=== PATIENT | male | born 1960 | race African-American/Black ===

== ENCOUNTER 2017-12-21 22:26 | Inpatient (IN) | payer MEDICARE, MEDICAID ==
[~2017-12-21] VITALS: Ht 175.3 cm; Wt 111.1 kg
[2017-12-21] MEDS ORDERED: ALBUTEROL (0.083%) 2.5MG/3ML NEB HHN STA (22:33)
[2017-12-21] MEDS ORDERED: IPRATROPIUM BROMIDE (0.02%) 0.5MG/2.5ML NEB HHN STA (22:33)
[2017-12-21] MEDS ORDERED: ASPIRIN 81MG TABLET PO ONE (22:45)
[2017-12-21] MEDS ORDERED: NITROGLYCERIN 0.4MG TABLET SL SL PRN (22:45)
[2017-12-21] MEDS ORDERED: FUROSEMIDE 100MG/10ML VIAL IVP ONE (23:00)
[2017-12-21 23:13] LABS: HEMATOCRIT. 26.4 % (42.0-52.0); HEMOGLOBIN. 8.9 g/dL (14.0-18.0); MEAN CORPUSCULAR VOLUME 91.7 fL (80.0-94.0); MEAN PLATELET VOLUME 8.2 fl (7.4-10.4); PLATELET 331 x1000/uL (130-400); RED BLOOD CELL COUNT 2.87 mill/uL (4.7-6.1); RED CELL DISTRIBUTION WIDTH 16.7 % (11.6-14.6)
[2017-12-21 23:14] LABS: CHLORIDE 98 mEq/L (98-107)
[2017-12-21 23:16] LABS: PARTIAL THROMBOPLASTIN TIME 26.4 sec (23.4-31.0); PROTHROMBIN TIME 10.1 sec (9.1-11.1)
[2017-12-22] VITALS (34 sets, daily range): BP systolic 82–200; BP diastolic 27–157
[2017-12-22 00:15] LABS: PLATELET ESTIMATE NORMAL
[2017-12-22] MEDS ORDERED: HEPARIN 5000 UNITS/ML VIAL IV SCH (03:15)
[2017-12-22] MEDS ORDERED: HEPARIN 25,000 UNITS PREMIX 500 ML IV PRN (03:15)
[2017-12-22] MEDS ORDERED: ALBUTEROL (0.083%) 2.5MG/3ML NEB HHN STA (04:46)
[2017-12-22] MEDS ORDERED: IPRATROPIUM BROMIDE (0.02%) 0.5MG/2.5ML NEB HHN STA (04:46)
[2017-12-22] MEDS ORDERED: TAMS-11 PO (09:20)
[2017-12-22] MEDS ORDERED: CLONIDINE 0.1MG TABLET PO PRN (09:45)
[2017-12-22] MEDS ORDERED: IPRATROPIUM/ALBUTEROL 0.5-3(2.5)MG/3ML NEB HHN PRN (09:45)
[2017-12-22] MEDS ORDERED: DEXTROSE 50% WATER 50ML SYRINGE IV PRN (10:00)
[2017-12-22] MEDS ORDERED: CLOPIDOGREL 75MG TABLET PO NR ×2 (10:30→11:00)
[2017-12-22] MEDS ORDERED: ASPIRIN 325MG EC TABLET PO SCH (10:45)
[2017-12-22] MEDS: IPRATROPIUM/ALBUTEROL 0.5-3(2.5)MG/3ML NEB HHN SCH ×3 (10:47→20:01)
[2017-12-22] MEDS: BUDESONIDE 0.5MG/2ML NEB HHN SCH ×2 (10:47→20:01)
[2017-12-22 10:53] LABS: BG BASE EXCESS -4.8 mmol/L (-2.0-2.0); BG BILEVEL POS AIRWAY PRESSURE 15/5; BG CARBOXYHEMOGLOBIN 0.3 % (0.5-1.5); BG FRACTION INSPIRED OXYGEN 40; BG HCO3 ACT 20.8 mmol/L (22.0-26.0); BG METHEMOGLOBIN 0.2 % (0.0-1.5); BG OXYHEMOGLOBIN 98.5 % (94.0-97.0); BG PCO2 40.4 mmHg (35.0-45.0); BG PH 7.329 (7.350-7.450); BG PO2 235.3 mmHg (75.0-100.0); BG SAMPLE SITE RIGHT RADIAL; BG TOTAL HEMOGLOBIN 9.6 g/dL (12.0-18.0); BG VENT MODE MASK - BIPAP; BG VENT RATE 20 set
[2017-12-22] MEDS: AMLODIPINE 2.5MG TABLET PO SCH ×2 (10:56→17:00)
[2017-12-22] MEDS: LOSARTAN POTASSIUM 50 MG TABLET PO SCH ×2 (10:56→20:56)
[2017-12-22] MEDS ORDERED: ENOXAPARIN 100MG/ML SYR SUBCUT NR (11:00)
[2017-12-22] MEDS ORDERED: ASPIRIN 81MG TABLET PO SCH (11:00)
[2017-12-22] MEDS: CLOPIDOGREL 75MG TABLET PO SCH (11:25)
[2017-12-22] MEDS: BLOOD SUGAR DIAGNOSTIC STRIP TEST SCH ×3 (11:47→20:28)
[2017-12-22] MEDS: NITROGLYCERIN OINT 1GM/INCH UDPKT TD SCH ×3 (12:00→23:46)
[2017-12-22] MEDS ORDERED: METOPROLOL TARTRATE 50MG TABLET PO SCH ×3 (12:00→21:00)
[2017-12-22] MEDS: INSULIN LISPRO 100 UNITS/ML SUBCUT SCH ×3 (12:02→20:27)
[2017-12-22 12:35] LABS: TOTAL IRON BINDING CAPACITY 227 ug/dL (250-450)
[2017-12-22 12:43] LABS: FERRITIN 842 ng/mL (22-322)
[2017-12-22 12:54] LABS: VITAMIN B12 SERUM 1029 pg/mL (211-911)
[2017-12-22] MEDS ORDERED: NITROGLYCERIN OINT 1GM/INCH UDPKT TD SCH (14:00)
[2017-12-22 17:01] LABS: METHADONE URINE SCREEN NEGATIVE (NEGATIVE); OPIATES URINE SCREEN NEGATIVE (NEGATIVE); PHENCYCLIDINE URINE SCREEN NEGATIVE (NEGATIVE)
[2017-12-22 17:02] LABS: *AMPHETAMINES SCREEN URINE NEGATIVE (NEGATIVE); *BARBITURATES SCREEN URINE NEGATIVE (NEGATIVE); *BENZODIAZEPINES SCREEN URINE NEGATIVE (NEGATIVE); *COCAINE SCREEN URINE NEGATIVE (NEGATIVE); CANNABINOID URINE SCREEN NEGATIVE (NEGATIVE)
[2017-12-22 17:38] LABS: BG BASE EXCESS -0.1 mmol/L (-2.0-2.0); BG CARBOXYHEMOGLOBIN 0.3 % (0.5-1.5); BG DEOXYHEMOGLOBIN 3.8 % (0.0-5.0); BG FRACTION INSPIRED OXYGEN 28; BG HCO3 ACT 23.9 mmol/L (22.0-26.0); BG METHEMOGLOBIN 0.2 % (0.0-1.5); BG OXYGEN SATURATION 96.2 % (92.0-98.5); BG OXYHEMOGLOBIN 95.7 % (94.0-97.0); BG PCO2 36.3 mmHg (35.0-45.0); BG PH 7.436 (7.350-7.450); BG PO2 95.8 mmHg (75.0-100.0); BG SAMPLE SITE RIGHT RADIAL; BG TOTAL HEMOGLOBIN 9.4 g/dL (12.0-18.0); BG VENT MODE NASAL CANNULA
[2017-12-22] MEDS ORDERED: FUROSEMIDE 100MG/10ML VIAL IVP NR (19:30)
[2017-12-22] MEDS: NEBIVOLOL HCL 5 MG TABLET PO SCH (20:55)
[2017-12-22] MEDS ORDERED: EPOETIN ALFA 10000UNITS/ML VIAL SUBCUT SCH (21:00)
[2017-12-22] MEDS: TAMSULOSIN HCL 0.4MG SR CAPSULE PO SCH (21:42)
[2017-12-23] VITALS (34 sets, daily range): BP systolic 38–147; BP diastolic 21–101
[2017-12-23] MEDS: IPRATROPIUM/ALBUTEROL 0.5-3(2.5)MG/3ML NEB HHN SCH ×4 (00:12→12:09)
[2017-12-23] MEDS: NITROGLYCERIN OINT 1GM/INCH UDPKT TD SCH ×3 (05:48→21:58)
[2017-12-23 06:01] LABS: BASOPHILS % 0.8 % (0.0-2.0); EOSINOPHILS % 1.1 % (0.0-5.0); HEMATOCRIT. 23.9 % (42.0-52.0); LYMPHOCYTES % 24.4 % (20.0-50.0); MEAN CORPUSCULAR VOLUME 93.2 fL (80.0-94.0); MEAN PLATELET VOLUME 8.2 fl (7.4-10.4); MONOCYTES % 9.5 % (2.0-8.0); NEUTROPHILS % 64.2 % (40.0-76.0); PLATELET 296 x1000/uL (130-400); RED BLOOD CELL COUNT 2.57 mill/uL (4.7-6.1); RED CELL DISTRIBUTION WIDTH 16.9 % (11.6-14.6)
[2017-12-23] MEDS: BLOOD SUGAR DIAGNOSTIC STRIP TEST SCH ×4 (07:50→21:58)
[2017-12-23] MEDS: INSULIN LISPRO 100 UNITS/ML SUBCUT SCH ×4 (07:51→22:12)
[2017-12-23 07:58] LABS: CREATINE KINASE MB FRACTION 12.7 ng/mL (0.5-3.6)
[2017-12-23] MEDS: BUDESONIDE 0.5MG/2ML NEB HHN SCH ×2 (07:58→20:30)
[2017-12-23 08:06] LABS: PHOSPHORUS 8.6 mg/dL (2.5-4.9)
[2017-12-23] MEDS: LOSARTAN POTASSIUM 50 MG TABLET PO SCH ×2 (08:26→21:58)
[2017-12-23] MEDS: AMLODIPINE 2.5MG TABLET PO SCH ×2 (08:26→17:00)
[2017-12-23] MEDS: NEBIVOLOL HCL 5 MG TABLET PO SCH (08:26)
[2017-12-23] MEDS: CLOPIDOGREL 75MG TABLET PO SCH (08:46)
[2017-12-23] MEDS: ASPIRIN 325MG EC TABLET PO SCH (08:46)
[2017-12-23] MEDS: TAMSULOSIN HCL 0.4MG SR CAPSULE PO SCH (08:46)
[2017-12-23] MEDS: FOLIC ACID/VITAMIN B COMP W-C TABLET PO SCH (08:46)
[2017-12-23 09:37] LABS: BG BASE EXCESS -0.2 mmol/L (-2.0-2.0); BG CARBOXYHEMOGLOBIN 0.6 % (0.5-1.5); BG DEOXYHEMOGLOBIN 8.9 % (0.0-5.0); BG HCO3 ACT 24.1 mmol/L (22.0-26.0); BG METHEMOGLOBIN 0.3 % (0.0-1.5); BG OXYHEMOGLOBIN 90.2 % (94.0-97.0); BG PCO2 37.8 mmHg (35.0-45.0); BG PH 7.422 (7.350-7.450); BG PO2 64.9 mmHg (75.0-100.0); BG SAMPLE SITE RIGHT RADIAL; BG TOTAL HEMOGLOBIN 9.5 g/dL (12.0-18.0); BG VENT MODE ROOM AIR
[2017-12-23] MEDS ORDERED: IODIXANOL 320MG/ML 100 ML BOTTLE IV ONE ×3 (09:49→11:22)
[2017-12-23] MEDS ORDERED: LIDOCAINE HCL 1% 10 MG/ML 10ML VIAL ONE (09:49)
[2017-12-23] MEDS ORDERED: FENTANYL CITRATE/PF 50MCG/ML 2ML VIAL ONE (09:52)
[2017-12-23] MEDS ORDERED: MIDAZOLAM HCL 2 MG/2 ML VIAL ONE ×2 (09:52→11:09)
[2017-12-23] MEDS ORDERED: IOHEXOL-300 100 ML BOTTLE ONE (10:18)
[2017-12-23] MEDS ORDERED: CLOPIDOGREL 75MG TABLET ONE (10:59)
[2017-12-23] MEDS ORDERED: DIPHENHYDRAMINE 50MG/ML VIAL ONE (11:26)
[2017-12-23] MEDS ORDERED: MORPHINE SULFATE 4 MG/ML CPJ (NOT FOR IM USE) IV PRN (11:45)
[2017-12-23] MEDS ORDERED: CLOPIDOGREL 75MG TABLET PO NR (11:45)
[2017-12-23] MEDS ORDERED: ATROPINE SULFATE 1MG/10ML SYR IV PRN (11:45)
[2017-12-23] MEDS ORDERED: ACETAMINOPHEN 325MG TABLET PO PRN (11:45)
[2017-12-23] MEDS: METOPROLOL TARTRATE 25MG TABLET PO SCH ×2 (12:38→21:58)
[2017-12-23] MEDS ORDERED: HEPARIN SODIUM 1,000 UNIT/1ML VIAL IV ONE (13:56)
[2017-12-23] MEDS ORDERED: NICARDIPINE 100MCG/ML 10ML VIAL (CATH LAB) IV ONE (14:05)
[2017-12-23] MEDS ORDERED: NITROGLYCERIN 50MCG/ML 10ML VIAL (CATH LAB) IV ONE (14:05)
[2017-12-23] MEDS ORDERED: ATORVASTATIN CALCIUM 40MG TABLET PO SCH (21:00)
[2017-12-24] VITALS (13 sets, daily range): BP systolic 105–143; BP diastolic 58–96
[2017-12-24 06:30] LABS: BASOPHILS % 0.8 % (0.0-2.0); EOSINOPHILS % 1.8 % (0.0-5.0); HEMATOCRIT. 25.4 % (42.0-52.0); HEMOGLOBIN. 8.6 g/dL (14.0-18.0); LYMPHOCYTES % 20.3 % (20.0-50.0); MEAN CORPUSCULAR HEMOGLOBIN 31.1 pg (28.0-32.0); MEAN CORPUSCULAR VOLUME 91.9 fL (80.0-94.0); MONOCYTES % 10.2 % (2.0-8.0); NEUTROPHILS % 66.9 % (40.0-76.0); PLATELET 312 x1000/uL (130-400); RED BLOOD CELL COUNT 2.76 mill/uL (4.7-6.1); RED CELL DISTRIBUTION WIDTH 16.6 % (11.6-14.6)
[2017-12-24] MEDS: NITROGLYCERIN OINT 1GM/INCH UDPKT TD SCH ×2 (06:31→14:00)
[2017-12-24] MEDS: BLOOD SUGAR DIAGNOSTIC STRIP TEST SCH ×2 (06:34→11:50)
[2017-12-24 06:39] LABS: CHLORIDE 95 mEq/L (98-107)
[2017-12-24 06:53] LABS: CREATINE KINASE 455 IU/L (39-308)
[2017-12-24 06:56] LABS: CREATINE KINASE MB FRACTION 10.5 ng/mL (0.5-3.6)
[2017-12-24 07:09] LABS: PHOSPHORUS 9.2 mg/dL (2.5-4.9)
[2017-12-24] MEDS: BUDESONIDE 0.5MG/2ML NEB HHN SCH (08:25)
[2017-12-24] MEDS: INSULIN LISPRO 100 UNITS/ML SUBCUT SCH ×2 (08:37→12:20)
[2017-12-24] MEDS ORDERED: ASPIRIN 325MG TABLET PO SCH (09:00)
[2017-12-24] MEDS: AMLODIPINE 2.5MG TABLET PO SCH (09:00)
[2017-12-24] MEDS ORDERED: CLOPIDOGREL 75MG TABLET PO SCH (09:00)
[2017-12-24] MEDS ORDERED: CALCIUM ACETATE 667MG CAPSULE PO SCH (12:20)
[2017-12-24] MEDS: ASPIRIN 325MG EC TABLET PO SCH (13:25)
[2017-12-24] MEDS: FOLIC ACID/VITAMIN B COMP W-C TABLET PO SCH (13:25)
[2017-12-24] MEDS: LOSARTAN POTASSIUM 50 MG TABLET PO SCH (13:25)
[2017-12-24] MEDS: TAMSULOSIN HCL 0.4MG SR CAPSULE PO SCH (13:25)
[2017-12-24] MEDS: METOPROLOL TARTRATE 25MG TABLET PO SCH (13:25)
== END 2017-12-24 16:00 | disposition home or self-care (01) | DRG 246 ==
LOC: ER 22:26 → 5EST 23:40 → EDBEDREQ 12-22 00:25 → EDBEDREQSVC 12-22 04:57 → ENRESERV 12-22 07:40 → CVICU 12-22 11:07 → 3WST 12-23 16:40
PROVIDERS: ADMIT Internal Medicine; ATTEND Internal Medicine
PROC: 5A09357 Assistance with Respiratory Ventilation, Less than 24 Consecutive Hours, Continuous Positive Airway Pressure (ICD-10-PCS; 2017-12-21)
PROC: 5A09357 Assistance with Respiratory Ventilation, Less than 24 Consecutive Hours, Continuous Positive Airway Pressure (ICD-10-PCS; 2017-12-22)
PROC: 5A1D70Z Performance of Urinary Filtration, Intermittent, Less than 6 Hours Per Day (ICD-10-PCS; 2017-12-22)
PROC: B54MZZA Ultrasonography of Right Upper Extremity Veins, Guidance (ICD-10-PCS; 2017-12-22)
PROC: 05HY33Z Insertion of Infusion Device into Upper Vein, Percutaneous Approach (ICD-10-PCS; 2017-12-22)
PROC: 027035Z Dilation of Coronary Artery, One Artery with Two Drug-eluting Intraluminal Devices, Percutaneous Approach (ICD-10-PCS; principal; 2017-12-23)
PROC: 4A023N7 Measurement of Cardiac Sampling and Pressure, Left Heart, Percutaneous Approach (ICD-10-PCS; 2017-12-23)
PROC: B2111ZZ Fluoroscopy of Multiple Coronary Arteries using Low Osmolar Contrast (ICD-10-PCS; 2017-12-23)
PROC: B2151ZZ Fluoroscopy of Left Heart using Low Osmolar Contrast (ICD-10-PCS; 2017-12-23)
PROC: 5A1D70Z Performance of Urinary Filtration, Intermittent, Less than 6 Hours Per Day (ICD-10-PCS; 2017-12-23)
DX: I21.4 Non-ST elevation (NSTEMI) myocardial infarction (principal); J96.01 Acute respiratory failure with hypoxia; N18.6 End stage renal disease; I50.33 Acute on chronic diastolic (congestive) heart failure; I13.2 Hypertensive heart and chronic kidney disease with heart failure and with stage 5 chronic kidney disease, or end stage renal disease; Z99.2 Dependence on renal dialysis; E11.22 Type 2 diabetes mellitus with diabetic chronic kidney disease; E66.9 Obesity, unspecified; D63.8 Anemia in other chronic diseases classified elsewhere; I16.0 Hypertensive urgency; I25.10 Atherosclerotic heart disease of native coronary artery without angina pectoris; I25.2 Old myocardial infarction; J45.909 Unspecified asthma, uncomplicated; N40.0 Benign prostatic hyperplasia without lower urinary tract symptoms; Z82.49 Family history of ischemic heart disease and other diseases of the circulatory system; Z83.3 Family history of diabetes mellitus; Z68.36 Body mass index [BMI] 36.0-36.9, adult
CPT/HCPCS: 36415; 36569; 36600; 71045; 76937; 80048; 80053; 80061; 80305; 82375; 82550; 82553; 82607; 82728; 82805; 82962; 83036; 83540; 83550; 83735; 83880; 84100; 84443; 84484; 85025; 85347; 85379; 85610; 85730; 92928; 93005; 93306; 93458; 93880; 93970; 94640; 94660; 96374; 96375; 99291; C1725; C1769; C1874; C1887; C1893; J0885; J1200; J1644; J1650; J1815; J1940; J2250; J2270; J3010; J3490; J7030; J7040; J7611; J7620; J7626; Q9967

== ENCOUNTER 2018-03-03 00:10 | Inpatient (IN) | payer MEDICARE, MEDICAID ==
[~2018-03-03] VITALS: Ht 170.2 cm; Wt 99.8 kg
[~2018-03-03 00:10] MED LIST: TAMS-11 PO
[2018-03-03 01:24] LABS: BASOPHILS % 0.6 % (0.0-2.0); EOSINOPHILS % 3.1 % (0.0-5.0); HEMOGLOBIN. 11.3 g/dL (14.0-18.0); LYMPHOCYTES % 17.1 % (20.0-50.0); MEAN CORPUSCULAR HEMOGLOBIN 31.5 pg (28.0-32.0); MEAN CORPUSCULAR VOLUME 88.9 fL (80.0-94.0); MEAN PLATELET VOLUME 8.1 fl (7.4-10.4); MONOCYTES % 7.3 % (2.0-8.0); NEUTROPHILS % 71.9 % (40.0-76.0); PLATELET 278 x1000/uL (130-400); RED CELL DISTRIBUTION WIDTH 16.2 % (11.6-14.6)
[2018-03-03 01:30] LABS: CHLORIDE 99 mEq/L (98-107)
[2018-03-03] MEDS ORDERED: IPRATROPIUM BROMIDE (0.02%) 0.5MG/2.5ML NEB HHN STA (03:53)
[2018-03-03] MEDS ORDERED: ALBUTEROL (0.083%) 2.5MG/3ML NEB HHN STA (03:53)
[2018-03-03 09:00] VITALS: BP 184/98
[2018-03-03] MEDS ORDERED: CLONIDINE 0.1MG TABLET PO PRN (10:00)
[2018-03-03] MEDS ORDERED: ACETAMINOPHEN 650MG/20.3ML UDC GT PRN (10:00)
[2018-03-03] MEDS ORDERED: DEXTROSE 50% WATER 50ML SYRINGE IV PRN (10:00)
[2018-03-03] MEDS ORDERED: ASPIRIN 81MG EC TABLET PO SCH (10:00)
[2018-03-03] MEDS ORDERED: GUAIFENESIN/DM 600MG/30MG ER TAB 12HR PO PRN (10:15)
[2018-03-03] MEDS ORDERED: INSULIN GLARGINE UD 100 UNITS/ML SYR SUBCUT SCH (11:00)
[2018-03-03 12:00] VITALS: BP 181/94
[2018-03-03] MEDS: BLOOD SUGAR DIAGNOSTIC STRIP TEST SCH ×3 (12:05→21:00)
[2018-03-03] MEDS: LEVOTHYROXINE SODIUM 25MCG TABLET PO SCH (12:14)
[2018-03-03] MEDS: LEVOTHYROXINE SODIUM 200MCG TABLET PO SCH (12:15)
[2018-03-03] MEDS: IPRATROPIUM/ALBUTEROL 0.5-3(2.5)MG/3ML NEB INH SCH ×3 (12:35→21:55)
[2018-03-03] MEDS ORDERED: INSULIN LISPRO 100 UNITS/ML SUBCUT SCH (12:50)
[2018-03-03] MEDS ORDERED: LOSARTAN POTASSIUM 25 MG TABLET PO SCH ×2 (14:00→17:00)
[2018-03-03] MEDS: INSULIN LISPRO 100 UNITS/ML SUBCUT SCH ×3 (14:16→21:00)
[2018-03-03] MEDS: AMLODIPINE 2.5MG TABLET PO SCH (15:30)
[2018-03-03] MEDS: CLOPIDOGREL 75MG TABLET PO SCH (15:57)
[2018-03-03 16:00] VITALS: BP 182/92
[2018-03-03] MEDS: ASPIRIN 81MG EC TABLET PO SCH (17:07)
[2018-03-03 20:00] VITALS: BP 178/93
[2018-03-03] MEDS: GUAIFENESIN 600MG ER TABLET PO SCH (20:10)
[2018-03-03] MEDS: METOPROLOL TARTRATE 100MG TABLET PO SCH (21:00)
[2018-03-03] MEDS: BUDESONIDE 0.5MG/2ML NEB HHN SCH (21:55)
[2018-03-03] MEDS: INSULIN GLARGINE UD 100 UNITS/ML SYR SUBCUT SCH (22:00)
[2018-03-04] VITALS (7 sets, daily range): BP systolic 115–162; BP diastolic 55–90
[2018-03-04] MEDS: AMLODIPINE 2.5MG TABLET PO SCH ×3 (00:05→21:09)
[2018-03-04] MEDS: LOSARTAN POTASSIUM 25 MG TABLET PO SCH ×3 (00:05→21:10)
[2018-03-04] MEDS: AZITHROMYCIN 250 MG TABLET PO SCH ×2 (00:06→08:29)
[2018-03-04] MEDS: TERAZOSIN HCL 5MG CAPSULE PO SCH ×2 (00:06→21:10)
[2018-03-04] MEDS: TAMSULOSIN HCL 0.4MG SR CAPSULE PO SCH ×2 (00:07→08:28)
[2018-03-04] MEDS: ATORVASTATIN CALCIUM 40MG TABLET PO SCH ×2 (00:08→21:08)
[2018-03-04] MEDS: LEVOTHYROXINE SODIUM 200MCG TABLET PO SCH (06:32)
[2018-03-04] MEDS: BLOOD SUGAR DIAGNOSTIC STRIP TEST SCH ×4 (06:32→21:10)
[2018-03-04] MEDS: LEVOTHYROXINE SODIUM 25MCG TABLET PO SCH (06:32)
[2018-03-04 06:52] LABS: BASOPHILS % 0.5 % (0.0-2.0); EOSINOPHILS % 2.1 % (0.0-5.0); HEMATOCRIT. 34.7 % (42.0-52.0); HEMOGLOBIN. 11.9 g/dL (14.0-18.0); LYMPHOCYTES % 19.9 % (20.0-50.0); MEAN CORPUSCULAR HEMOGLOBIN 30.8 pg (28.0-32.0); MEAN CORPUSCULAR VOLUME 89.6 fL (80.0-94.0); MEAN PLATELET VOLUME 8.1 fl (7.4-10.4); NEUTROPHILS % 69.5 % (40.0-76.0); PLATELET 272 x1000/uL (130-400); RED BLOOD CELL COUNT 3.87 mill/uL (4.7-6.1); RED CELL DISTRIBUTION WIDTH 16.3 % (11.6-14.6)
[2018-03-04] MEDS: CLOPIDOGREL 75MG TABLET PO SCH (08:27)
[2018-03-04] MEDS: METOPROLOL TARTRATE 100MG TABLET PO SCH ×2 (08:28→21:09)
[2018-03-04] MEDS: GUAIFENESIN 600MG ER TABLET PO SCH ×2 (08:28→21:10)
[2018-03-04] MEDS: ASPIRIN 81MG EC TABLET PO SCH ×2 (08:29→16:22)
[2018-03-04] MEDS: INSULIN LISPRO 100 UNITS/ML SUBCUT SCH ×7 (08:32→23:17)
[2018-03-04] MEDS ORDERED: PREDNISONE 20MG TABLET PO SCH (09:00)
[2018-03-04] MEDS: INSULIN GLARGINE UD 100 UNITS/ML SYR SUBCUT SCH ×2 (09:41→22:00)
[2018-03-04] MEDS: BUDESONIDE 0.5MG/2ML NEB HHN SCH ×2 (10:00→21:44)
[2018-03-04] MEDS: IPRATROPIUM/ALBUTEROL 0.5-3(2.5)MG/3ML NEB INH SCH ×3 (10:00→21:44)
[2018-03-04] MEDS ORDERED: IPRATROPIUM/ALBUTEROL 0.5-3(2.5)MG/3ML NEB HHN PRN (20:15)
[2018-03-05] MEDS: IPRATROPIUM/ALBUTEROL 0.5-3(2.5)MG/3ML NEB INH SCH ×2 (01:31→08:04)
[2018-03-05] MEDS: LEVOTHYROXINE SODIUM 200MCG TABLET PO SCH (06:10)
[2018-03-05] MEDS: LEVOTHYROXINE SODIUM 25MCG TABLET PO SCH (06:10)
[2018-03-05] MEDS: BLOOD SUGAR DIAGNOSTIC STRIP TEST SCH ×2 (06:11→12:20)
[2018-03-05] MEDS: INSULIN LISPRO 100 UNITS/ML SUBCUT SCH ×4 (07:50→12:29)
[2018-03-05] MEDS: BUDESONIDE 0.5MG/2ML NEB HHN SCH (08:04)
[2018-03-05] MEDS: METOPROLOL TARTRATE 100MG TABLET PO SCH (09:00)
[2018-03-05] MEDS: LOSARTAN POTASSIUM 25 MG TABLET PO SCH (09:00)
[2018-03-05] MEDS: AMLODIPINE 2.5MG TABLET PO SCH (09:00)
[2018-03-05] MEDS ORDERED: FOLIC ACID/VITAMIN B COMP W-C TABLET PO SCH (09:00)
[2018-03-05 12:00] VITALS: BP 112/64
[2018-03-05] MEDS ORDERED: IPRATROPIUM/ALBUTEROL 0.5-3(2.5)MG/3ML NEB HHN SCH ×2 (12:00→13:30)
[2018-03-05 12:14] LABS: BASOPHILS % 0.5 % (0.0-2.0); HEMATOCRIT. 32.4 % (42.0-52.0); HEMOGLOBIN. 11.4 g/dL (14.0-18.0); LYMPHOCYTES % 17.2 % (20.0-50.0); MEAN CORPUSCULAR VOLUME 90.6 fL (80.0-94.0); MEAN PLATELET VOLUME 8.4 fl (7.4-10.4); MONOCYTES % 8.5 % (2.0-8.0); NEUTROPHILS % 72.8 % (40.0-76.0); PLATELET 263 x1000/uL (130-400); RED BLOOD CELL COUNT 3.57 mill/uL (4.7-6.1); RED CELL DISTRIBUTION WIDTH 16.4 % (11.6-14.6)
[2018-03-05] MEDS: GUAIFENESIN 600MG ER TABLET PO SCH (12:25)
[2018-03-05] MEDS: ASPIRIN 81MG EC TABLET PO SCH (12:26)
[2018-03-05] MEDS: TAMSULOSIN HCL 0.4MG SR CAPSULE PO SCH (12:26)
[2018-03-05] MEDS: AZITHROMYCIN 250 MG TABLET PO SCH (12:26)
[2018-03-05] MEDS: CLOPIDOGREL 75MG TABLET PO SCH (12:26)
[2018-03-05] MEDS: INSULIN GLARGINE UD 100 UNITS/ML SYR SUBCUT SCH (12:30)
[2018-03-05] MEDS ORDERED: CALCIUM ACETATE 667MG CAPSULE PO SCH (12:50)
[2018-03-05 13:54] VITALS: BP 112/64
[2018-03-05] MEDS ORDERED: ACETYLCYSTEINE 100MG/ML 10% VIAL 4ML INH SCH (14:00)
[2018-03-05] MEDS ORDERED: CEFTRIAXONE 1 G PREMIX 50 ML IV SCH (14:00)
== END 2018-03-05 16:19 | disposition home or self-care (01) | DRG 291 ==
LOC: ER 00:10 → 6WST 05:38 → EDBEDREQ 05:51 → EDBEDREQTM 05:51 → ENRESERV 07:09 → ER 08:55 → CMPBEDREQ 08:56
PROVIDERS: ADMIT Emergency Medicine; ATTEND Emergency Medicine
PROC: 5A1D70Z Performance of Urinary Filtration, Intermittent, Less than 6 Hours Per Day (ICD-10-PCS; principal; 2018-03-03)
PROC: 5A1D70Z Performance of Urinary Filtration, Intermittent, Less than 6 Hours Per Day (ICD-10-PCS; 2018-03-05)
DX: I13.2 Hypertensive heart and chronic kidney disease with heart failure and with stage 5 chronic kidney disease, or end stage renal disease (principal); J96.00 Acute respiratory failure, unspecified whether with hypoxia or hypercapnia; J18.9 Pneumonia, unspecified organism; N18.6 End stage renal disease; J98.11 Atelectasis; E11.22 Type 2 diabetes mellitus with diabetic chronic kidney disease; J45.909 Unspecified asthma, uncomplicated; I25.10 Atherosclerotic heart disease of native coronary artery without angina pectoris; I50.9 Heart failure, unspecified; E66.01 Morbid (severe) obesity due to excess calories; R74.8 Abnormal levels of other serum enzymes; E11.649 Type 2 diabetes mellitus with hypoglycemia without coma; E78.5 Hyperlipidemia, unspecified; D63.8 Anemia in other chronic diseases classified elsewhere; N40.0 Benign prostatic hyperplasia without lower urinary tract symptoms; E03.9 Hypothyroidism, unspecified; J06.9 Acute upper respiratory infection, unspecified; I25.2 Old myocardial infarction; Z99.2 Dependence on renal dialysis; Z95.5 Presence of coronary angioplasty implant and graft; Z91.19 Patient's noncompliance with other medical treatment and regimen; Z87.891 Personal history of nicotine dependence; Z68.34 Body mass index [BMI] 34.0-34.9, adult
CPT/HCPCS: 36415; 71045; 80048; 80061; 82962; 83605; 83735; 84145; 84443; 84484; 85379; 87804; 93005; 93970; 94640; 96374; 99291; J0696; J1815; J7050; J7512; J7608; J7611; J7620; J7626

== ENCOUNTER 2018-03-20 04:31 | Inpatient (IN) | payer MEDICARE, MEDICAID ==
[2018-03-20] VITALS (7 sets, daily range): BP systolic 128–153; BP diastolic 57–102
[~2018-03-20] VITALS: Ht 175.3 cm; Wt 109.3 kg
[2018-03-20] MEDS ORDERED: ONDANSETRON HCL 4MG/2ML INJ IV STA (04:40)
[2018-03-20] MEDS ORDERED: NITROGLYCERIN OINT 1GM/INCH UDPKT TD ONE (04:45)
[2018-03-20 05:13] LABS: CHLORIDE 104 mEq/L (98-107)
[2018-03-20 05:18] LABS: BASOPHILS % 0.2 % (0.0-2.0); EOSINOPHILS % 0.3 % (0.0-5.0); HEMOGLOBIN. 10.6 g/dL (14.0-18.0); LYMPHOCYTES % 8.7 % (20.0-50.0); MEAN CORPUSCULAR HEMOGLOBIN 29.9 pg (28.0-32.0); MEAN CORPUSCULAR VOLUME 90.1 fL (80.0-94.0); MEAN PLATELET VOLUME 8.4 fl (7.4-10.4); MONOCYTES % 6.5 % (2.0-8.0); NEUTROPHILS % 84.3 % (40.0-76.0); PLATELET 245 x1000/uL (130-400); RED BLOOD CELL COUNT 3.55 mill/uL (4.7-6.1)
[2018-03-20] MEDS ORDERED: VANCOMYCIN 1 G PREMIX 200 ML IV ONE (05:30)
[2018-03-20] MEDS ORDERED: PIPERACILLIN/TAZ 3.375G PREMIX 50 ML IV ONE (05:30)
[2018-03-20] MEDS ORDERED: CEFTRIAXONE 1 G PREMIX 50 ML IV SCH (08:45)
[2018-03-20] MEDS ORDERED: DEXTROSE 50% WATER 50ML SYRINGE IV PRN (08:45)
[2018-03-20] MEDS ORDERED: ONDANSETRON HCL 4MG/2ML INJ IV PRN (08:45)
[2018-03-20] MEDS ORDERED: CLONIDINE 0.1MG TABLET PO PRN (08:45)
[2018-03-20] MEDS: BLOOD SUGAR DIAGNOSTIC STRIP TEST SCH ×4 (09:00→21:26)
[2018-03-20] MEDS: IPRATROPIUM/ALBUTEROL 0.5-3(2.5)MG/3ML NEB HHN PRN ×2 (10:02→15:51)
[2018-03-20] MEDS: BUDESONIDE 0.5MG/2ML NEB HHN SCH ×2 (10:02→21:24)
[2018-03-20] MEDS: AMLODIPINE 5MG TABLET PO SCH ×2 (10:17→21:25)
[2018-03-20] MEDS: AZITHROMYCIN 500 MG TABLET PO SCH (10:17)
[2018-03-20 10:52] LABS: PHOSPHORUS 8.8 mg/dL (2.5-4.9)
[2018-03-20] MEDS: CEFTRIAXONE 1 G PREMIX 50 ML IV SCH (11:47)
[2018-03-20] MEDS: SEVELAMER CARBONATE 800 MG TABLET PO SCH ×2 (12:20→17:12)
[2018-03-20] MEDS: INSULIN LISPRO 100 UNITS/ML SUBCUT SCH ×3 (12:20→21:26)
[2018-03-20] MEDS ORDERED: INSULIN LISPRO 100 UNITS/ML SUBCUT SCH (12:20)
[2018-03-20] MEDS: PREDNISONE 20MG TABLET PO SCH (13:45)
[2018-03-20] MEDS: INSULIN GLARGINE UD 100 UNITS/ML SYR SUBCUT SCH (21:26)
[2018-03-21] VITALS (16 sets, daily range): BP systolic 112–177; BP diastolic 55–92
[2018-03-21] MEDS: IPRATROPIUM/ALBUTEROL 0.5-3(2.5)MG/3ML NEB HHN PRN ×3 (04:50→21:42)
[2018-03-21 05:03] LABS: *AMPHETAMINES SCREEN URINE NEGATIVE (NEGATIVE); *BARBITURATES SCREEN URINE NEGATIVE (NEGATIVE); *BENZODIAZEPINES SCREEN URINE NEGATIVE (NEGATIVE); *COCAINE SCREEN URINE NEGATIVE (NEGATIVE)
[2018-03-21 05:04] LABS: CANNABINOID URINE SCREEN NEGATIVE (NEGATIVE); METHADONE URINE SCREEN NEGATIVE (NEGATIVE); OPIATES URINE SCREEN NEGATIVE (NEGATIVE); PHENCYCLIDINE URINE SCREEN NEGATIVE (NEGATIVE)
[2018-03-21 06:32] LABS: BASOPHILS % 0.5 % (0.0-2.0); EOSINOPHILS % 1.3 % (0.0-5.0); HEMOGLOBIN. 10.3 g/dL (14.0-18.0); LYMPHOCYTES % 24.2 % (20.0-50.0); MEAN CORPUSCULAR HEMOGLOBIN 30.2 pg (28.0-32.0); MEAN CORPUSCULAR VOLUME 88.4 fL (80.0-94.0); MEAN PLATELET VOLUME 8.6 fl (7.4-10.4); MONOCYTES % 7.5 % (2.0-8.0); NEUTROPHILS % 66.5 % (40.0-76.0); PLATELET 227 x1000/uL (130-400); RED CELL DISTRIBUTION WIDTH 17.3 % (11.6-14.6)
[2018-03-21] MEDS: SEVELAMER CARBONATE 800 MG TABLET PO SCH ×3 (06:56→17:25)
[2018-03-21] MEDS: BLOOD SUGAR DIAGNOSTIC STRIP TEST SCH ×4 (06:56→21:00)
[2018-03-21] MEDS: INSULIN LISPRO 100 UNITS/ML SUBCUT SCH ×4 (07:20→21:00)
[2018-03-21] MEDS: PREDNISONE 20MG TABLET PO SCH (09:28)
[2018-03-21] MEDS: AZITHROMYCIN 500 MG TABLET PO SCH (09:28)
[2018-03-21] MEDS: AMLODIPINE 5MG TABLET PO SCH ×2 (09:29→21:52)
[2018-03-21] MEDS: CEFTRIAXONE 1 G PREMIX 50 ML IV SCH (09:29)
[2018-03-21] MEDS: BUDESONIDE 0.5MG/2ML NEB HHN SCH ×2 (11:00→21:42)
[2018-03-21] MEDS: INSULIN GLARGINE UD 100 UNITS/ML SYR SUBCUT SCH (21:52)
== END 2018-03-21 23:10 | disposition home or self-care (01) | DRG 291 ==
LOC: ER 04:31 → 3WST 05:27 → EDBEDREQSVC 05:31 → EDBEDREQ 05:31 → ENRESERV 07:27
PROVIDERS: ADMIT Internal Medicine Nephrology; ATTEND Internal Medicine Nephrology
PROC: 5A09357 Assistance with Respiratory Ventilation, Less than 24 Consecutive Hours, Continuous Positive Airway Pressure (ICD-10-PCS; principal; 2018-03-20)
PROC: 5A1D70Z Performance of Urinary Filtration, Intermittent, Less than 6 Hours Per Day (ICD-10-PCS; 2018-03-20)
PROC: 5A09357 Assistance with Respiratory Ventilation, Less than 24 Consecutive Hours, Continuous Positive Airway Pressure (ICD-10-PCS; 2018-03-21)
PROC: 5A1D70Z Performance of Urinary Filtration, Intermittent, Less than 6 Hours Per Day (ICD-10-PCS; 2018-03-21)
DX: I13.2 Hypertensive heart and chronic kidney disease with heart failure and with stage 5 chronic kidney disease, or end stage renal disease (principal); J96.00 Acute respiratory failure, unspecified whether with hypoxia or hypercapnia; J18.9 Pneumonia, unspecified organism; N18.6 End stage renal disease; I50.33 Acute on chronic diastolic (congestive) heart failure; J44.0 Chronic obstructive pulmonary disease with (acute) lower respiratory infection; D63.1 Anemia in chronic kidney disease; E11.22 Type 2 diabetes mellitus with diabetic chronic kidney disease; E66.9 Obesity, unspecified; I25.10 Atherosclerotic heart disease of native coronary artery without angina pectoris; E83.39 Other disorders of phosphorus metabolism; N40.0 Benign prostatic hyperplasia without lower urinary tract symptoms; Z68.35 Body mass index [BMI] 35.0-35.9, adult; Z87.01 Personal history of pneumonia (recurrent); Z95.5 Presence of coronary angioplasty implant and graft; Z99.2 Dependence on renal dialysis
CPT/HCPCS: 36415; 71045; 76700; 80048; 80305; 82962; 83605; 84100; 84145; 84484; 93005; 93970; 94640; 94660; 96365; 96368; 96375; 99291; J0696; J1815; J2405; J2543; J3370; J7512; J7620; J7626

== ENCOUNTER 2019-06-28 10:04 | Inpatient (IN) | payer MEDICARE, MEDICAID ==
[~2019-06-28] VITALS: Ht 175.3 cm; Wt 109.4 kg
[2019-06-28] MEDS ORDERED: VANCOMYCIN 1 G PREMIX 200 ML IV SCH (10:30)
[2019-06-28] MEDS ORDERED: LEVOFLOXACIN 500MG PREMIX 100 ML IV ONE (10:30)
[2019-06-28] MEDS ORDERED: ACETAMINOPHEN 650MG SUPP PR ONE (10:30)
[2019-06-28] MEDS ORDERED: ETOMIDATE 2MG/ML 10ML VIAL IV ONE ×2 (10:51→11:30)
[2019-06-28] MEDS ORDERED: VECURONIUM BROMIDE 10 MG/VIAL IV ONE ×2 (10:51→11:30)
[2019-06-28] MEDS ORDERED: LORAZEPAM 2MG/ML CPJ ONE (11:12)
[2019-06-28 11:13] LABS: HEMATOCRIT. 34.4 % (42.0-52.0); HEMOGLOBIN. 11.6 g/dL (14.0-18.0); MEAN CORPUSCULAR HEMOGLOBIN 30.5 pg (28.0-32.0); MEAN CORPUSCULAR VOLUME 90.1 fL (80.0-94.0); PLATELET 400 x1000/uL (130-400); RED BLOOD CELL COUNT 3.82 mill/uL (4.7-6.1); RED CELL DISTRIBUTION WIDTH 16.3 % (11.6-14.6)
[2019-06-28 11:22] LABS: INR 0.9
[2019-06-28] MEDS ORDERED: LORAZEPAM 2MG/ML CPJ IV ONE ×2 (11:30→16:45)
[2019-06-28] MEDS ORDERED: PROPOFOL 10MG/ML 100ML 100 ML IV ONE (11:30)
[2019-06-28] MEDS ORDERED: FUROSEMIDE 100MG/10ML VIAL IV STA (12:10)
[2019-06-28 12:15] LABS: PLATELET ESTIMATE NORMAL
[2019-06-28] MEDS ORDERED: CALCIUM CHLORIDE 1GM/10ML SYR IV ONE (12:15)
[2019-06-28] MEDS ORDERED: DEXTROSE 50% WATER 50ML SYRINGE IV ONE ×2 (12:15)
[2019-06-28] MEDS ORDERED: SODIUM POLYSTYRENE SULFONATE 15 G/60 ML BOT PO ONE (12:15)
[2019-06-28] MEDS ORDERED: ONDANSETRON HCL 4MG/2ML INJ IV PRN (12:15)
[2019-06-28] MEDS ORDERED: CALCIUM GLUCONATE 1,000 MG in DEXT 5% WATER 90 ML IV ONE (12:15)
[2019-06-28] MEDS ORDERED: INSULIN REGULAR (HUMULIN R) UD 100 UNITS/ML SYR IV ONE (12:15)
[2019-06-28] MEDS ORDERED: ACETAMINOPHEN 325MG TABLET PO PRN (12:15)
[2019-06-28] MEDS ORDERED: SODIUM BICARBONATE 8.4% 1 MEQ/ML 50ML SYR IV ONE ×2 (12:15)
[2019-06-28] MEDS ORDERED: INSULIN REGULAR (HUMULIN R) 300UNITS/3ML IV ONE (12:15)
[2019-06-28 12:28] LABS: BG BASE EXCESS -10.3 mmol/L (-2.0-2.0); BG CARBOXYHEMOGLOBIN 0.3 % (0.5-1.5); BG DEOXYHEMOGLOBIN 0.9 % (0.0-5.0); BG FRACTION INSPIRED OXYGEN 100; BG HCO3 ACT 14.1 mmol/L (22.0-26.0); BG METHEMOGLOBIN 0.2 % (0.0-1.5); BG OXYGEN SATURATION 99.1 % (92.0-98.5); BG OXYHEMOGLOBIN 98.6 % (94.0-97.0); BG PCO2 26.7 mmHg (35.0-45.0); BG PH 7.342 (7.350-7.450); BG PO2 445.5 mmHg (75.0-100.0); BG SAMPLE SITE RIGHT RADIAL; BG TIDAL VOLUME(mL) 600 mL; BG TOTAL HEMOGLOBIN 9.9 g/dL (12.0-18.0); BG VENT MODE VENT - A/C; BG VENT RATE 18 set
[2019-06-28] MEDS ORDERED: HYDRALAZINE 20MG/ML VIAL IV SCH (15:00)
[2019-06-28 15:56] LABS: CLARITY URINE CLOUDY (CLEAR); COLOR URINE YELLOW (YELLOW); PROTEIN URINE 3+ (NEGATIVE); SPECIFIC GRAVITY URINE 1.019 (1.005-1.030)
[2019-06-28 15:57] LABS: KETONES URINE TRACE (NEGATIVE); LEUKOCYTE ESTERASE URINE 1+ (NEGATIVE); NITRITE URINE NEGATIVE (NEGATIVE); OCCULT BLOOD URINE 3+ (NEGATIVE); UROBILINOGEN URINE 0.2 E.U./dL (0.2-1.0)
[2019-06-28] MEDS ORDERED: CEFTRIAXONE 1 G PREMIX 50 ML IV SCH (16:00)
[2019-06-28] MEDS ORDERED: AZITHROMYCIN 500 MG in DEXT 5% WATER 250 ML IV SCH (16:00)
[2019-06-28] MEDS ORDERED: PROPOFOL 10MG/ML 100ML 100 ML IV SCH (16:45)
[2019-06-28] MEDS ORDERED: PROPOFOL 10MG/ML 100ML 100 ML IV PRN (17:30)
[2019-06-28] MEDS ORDERED: DOPAMINE 400MG/250ML PREMIX 250 ML IV ONE (19:00)
[2019-06-28] MEDS ORDERED: NOREPINEPHRINE 4MG/250ML PMX 250 ML IV ONE (19:00)
[2019-06-28 21:21] LABS: CHLORIDE 97 mEq/L (98-107)
[2019-06-28] MEDS: MIDAZOLAM HCL 50 MG in DEXTROSE 5% WATER 50ML IV PRN (22:04)
[2019-06-28 22:50] VITALS: BP 130/87
[2019-06-28 23:00] VITALS: BP 130/87
[2019-06-28 23:15] VITALS: BP 158/84
[2019-06-28 23:30] VITALS: BP 151/76
[2019-06-28] MEDS ORDERED: DOPAMINE 800 MG IV PRN (23:40)
[2019-06-28 23:45] VITALS: BP 138/79
[2019-06-29] VITALS (85 sets, daily range): BP systolic 93–152; BP diastolic 50–93
[2019-06-29] MEDS ORDERED: NOREPINEPHRINE 32 MG in DEXT 5% WATER 468 ML IV PRN ×4
[2019-06-29] MEDS ORDERED: FENTANYL CITRATE/PF 500 MCG in SODIUM CHLORIDE 0.9% 40 ML IV PRN ×2
[2019-06-29] MEDS: MIDAZOLAM HCL 50 MG in DEXTROSE 5% WATER 50ML IV PRN (00:15)
[2019-06-29] MEDS: DEXT 5%/0.9% NACL 1,000 ML IV SCH ×2 (00:16→23:09)
[2019-06-29] MEDS: FENTANYL CITRATE/PF 500 MCG in SODIUM CHLORIDE 0.9% 40 ML IV PRN ×2 (00:16→23:09)
[2019-06-29] MEDS: DOPAMINE 800MG PREMIX (DOUBLE) 250 ML IV PRN ×2 (00:18→23:15)
[2019-06-29 05:40] LABS: HEMATOCRIT. 26.8 % (42.0-52.0); HEMOGLOBIN. 9.2 g/dL (14.0-18.0); MEAN CORPUSCULAR HEMOGLOBIN 30.7 pg (28.0-32.0); MEAN CORPUSCULAR VOLUME 89.4 fL (80.0-94.0); MEAN PLATELET VOLUME 8.4 fl (7.4-10.4); PLATELET 352 x1000/uL (130-400); RED CELL DISTRIBUTION WIDTH 16.4 % (11.6-14.6)
[2019-06-29 07:55] LABS: PLATELET ESTIMATE NORMAL
[2019-06-29 08:03] LABS: BG BASE EXCESS -4.4 mmol/L (-2.0-2.0); BG CARBOXYHEMOGLOBIN 0.3 % (0.5-1.5); BG DEOXYHEMOGLOBIN 1.9 % (0.0-5.0); BG HCO3 ACT 21.6 mmol/L (22.0-26.0); BG METHEMOGLOBIN 0.3 % (0.0-1.5); BG OXYGEN SATURATION 98.1 % (92.0-98.5); BG OXYHEMOGLOBIN 97.5 % (94.0-97.0); BG PCO2 43.9 mmHg (35.0-45.0); BG PO2 154.7 mmHg (75.0-100.0); BG SAMPLE SITE RIGHT RADIAL; BG TIDAL VOLUME(mL) 600 mL; BG TOTAL HEMOGLOBIN 9.3 g/dL (12.0-18.0); BG VENT MODE VENT - A/C; BG VENT RATE 18 set
[2019-06-29] MEDS: PANTOPRAZOLE SODIUM 40 MG/VIAL IV SCH (08:44)
[2019-06-29] MEDS: ENOXAPARIN 40MG/0.4ML SYR SUBCUT SCH (08:44)
[2019-06-29] MEDS ORDERED: PIPERACILLIN/TAZOBACTAM 3.375 G in DEXT 5% WATER 100 ML IV SCH ×2 (09:30→10:00)
[2019-06-29] MEDS: PIPERACILLIN/TAZOBACTAM 2.25 G in DEXTROSE 5% WATER 50 ML IV SCH ×2 (12:45→17:59)
[2019-06-29 16:32] LABS: BG BASE EXCESS -2.3 mmol/L (-2.0-2.0); BG CARBOXYHEMOGLOBIN 0.3 % (0.5-1.5); BG DEOXYHEMOGLOBIN 1.9 % (0.0-5.0); BG HCO3 ACT 22.4 mmol/L (22.0-26.0); BG METHEMOGLOBIN 0.3 % (0.0-1.5); BG OXYGEN SATURATION 98.1 % (92.0-98.5); BG OXYHEMOGLOBIN 97.5 % (94.0-97.0); BG PCO2 37.7 mmHg (35.0-45.0); BG PH 7.391 (7.350-7.450); BG PO2 152.3 mmHg (75.0-100.0); BG SAMPLE SITE RIGHT RADIAL; BG TIDAL VOLUME(mL) 600 mL; BG TOTAL HEMOGLOBIN 9.1 g/dL (12.0-18.0); BG VENT MODE VENT - A/C; BG VENT RATE 18 set
[2019-06-30] VITALS (73 sets, daily range): BP systolic 72–168; BP diastolic 44–94
[2019-06-30] MEDS: PIPERACILLIN/TAZOBACTAM 2.25 G in DEXTROSE 5% WATER 50 ML IV SCH ×3 (01:17→17:54)
[2019-06-30] MEDS: MIDAZOLAM HCL 50 MG in DEXTROSE 5% WATER 50ML IV PRN (02:08)
[2019-06-30 05:42] LABS: HEMATOCRIT. 26.4 % (42.0-52.0); MEAN CORPUSCULAR HEMOGLOBIN 30.4 pg (28.0-32.0); MEAN CORPUSCULAR VOLUME 89.4 fL (80.0-94.0); MEAN PLATELET VOLUME 8.5 fl (7.4-10.4); PLATELET 261 x1000/uL (130-400); RED BLOOD CELL COUNT 2.95 mill/uL (4.7-6.1); RED CELL DISTRIBUTION WIDTH 16.3 % (11.6-14.6)
[2019-06-30] MEDS: PANTOPRAZOLE SODIUM 40 MG/VIAL IV SCH (09:13)
[2019-06-30] MEDS: ENOXAPARIN 40MG/0.4ML SYR SUBCUT SCH (09:13)
[2019-06-30 09:55] LABS: PLATELET ESTIMATE NORMAL
[2019-06-30] MEDS: IPRATROPIUM/ALBUTEROL 0.5-3(2.5)MG/3ML NEB HHN SCH (21:00)
[2019-06-30] MEDS: DEXT 5%/0.9% NACL 1,000 ML IV SCH (23:27)
[2019-07-01] VITALS (85 sets, daily range): BP systolic 110–205; BP diastolic 46–100
[2019-07-01] MEDS: PIPERACILLIN/TAZOBACTAM 2.25 G in DEXTROSE 5% WATER 50 ML IV SCH ×3 (02:31→18:04)
[2019-07-01] MEDS: MIDAZOLAM HCL 50 MG in DEXTROSE 5% WATER 50ML IV PRN ×2 (03:13→18:04)
[2019-07-01 05:28] LABS: BASOPHILS % 0.7 % (0.0-2.0); EOSINOPHILS % 0.3 % (0.0-5.0); HEMATOCRIT. 23.7 % (42.0-52.0); HEMOGLOBIN. 8.1 g/dL (14.0-18.0); LYMPHOCYTES % 7.3 % (20.0-50.0); MEAN CORPUSCULAR HEMOGLOBIN 30.6 pg (28.0-32.0); MEAN CORPUSCULAR VOLUME 89.2 fL (80.0-94.0); MEAN PLATELET VOLUME 8.5 fl (7.4-10.4); MONOCYTES % 8.4 % (2.0-8.0); NEUTROPHILS % 83.3 % (40.0-76.0); PLATELET 234 x1000/uL (130-400); RED BLOOD CELL COUNT 2.66 mill/uL (4.7-6.1); RED CELL DISTRIBUTION WIDTH 16.3 % (11.6-14.6)
[2019-07-01 08:03] LABS: BG BASE EXCESS -3.4 mmol/L (-2.0-2.0); BG DEOXYHEMOGLOBIN 1.3 % (0.0-5.0); BG HCO3 ACT 21.2 mmol/L (22.0-26.0); BG METHEMOGLOBIN 0.3 % (0.0-1.5); BG OXYGEN SATURATION 98.7 % (92.0-98.5); BG OXYHEMOGLOBIN 98.4 % (94.0-97.0); BG PCO2 35.5 mmHg (35.0-45.0); BG PH 7.393 (7.350-7.450); BG SAMPLE SITE RIGHT RADIAL; BG TIDAL VOLUME(mL) 600 mL; BG TOTAL HEMOGLOBIN 6.9 g/dL (12.0-18.0); BG VENT MODE VENT - A/C; BG VENT RATE 18 set
[2019-07-01] MEDS: IPRATROPIUM/ALBUTEROL 0.5-3(2.5)MG/3ML NEB HHN SCH ×3 (08:23→16:04)
[2019-07-01] MEDS: ENOXAPARIN 40MG/0.4ML SYR SUBCUT SCH (09:00)
[2019-07-01] MEDS: PANTOPRAZOLE SODIUM 40 MG/VIAL IV SCH (09:17)
[2019-07-01] MEDS ORDERED: DEXTROSE 50% WATER 50ML SYRINGE IV PRN (11:00)
[2019-07-01] MEDS: BLOOD SUGAR DIAGNOSTIC STRIP TEST SCH ×3 (11:11→21:00)
[2019-07-01] MEDS: INSULIN LISPRO 100 UNITS/ML SUBCUT SCH ×3 (12:40→21:00)
[2019-07-01] MEDS: CARVEDILOL 6.25 MG TABLET PO SCH (21:57)
[2019-07-01] MEDS: DEXT 5%/0.9% NACL 1,000 ML IV SCH (22:45)
[2019-07-02] VITALS (80 sets, daily range): BP systolic 93–220; BP diastolic 42–142
[2019-07-02] MEDS: PIPERACILLIN/TAZOBACTAM 2.25 G in DEXTROSE 5% WATER 50 ML IV SCH ×3 (02:25→18:36)
[2019-07-02] MEDS: BLOOD SUGAR DIAGNOSTIC STRIP TEST SCH ×4 (06:30→21:00)
[2019-07-02] MEDS: MIDAZOLAM HCL 50 MG in DEXTROSE 5% WATER 50ML IV PRN ×3 (06:43→23:43)
[2019-07-02] MEDS: INSULIN LISPRO 100 UNITS/ML SUBCUT SCH ×5 (07:00→21:00)
[2019-07-02] MEDS: IPRATROPIUM/ALBUTEROL 0.5-3(2.5)MG/3ML NEB HHN SCH ×3 (08:32→16:34)
[2019-07-02] MEDS: ENOXAPARIN 40MG/0.4ML SYR SUBCUT SCH (08:45)
[2019-07-02] MEDS: PANTOPRAZOLE SODIUM 40 MG/VIAL IV SCH (08:45)
[2019-07-02] MEDS: CARVEDILOL 6.25 MG TABLET PO SCH (08:46)
[2019-07-02 09:51] LABS: BASOPHILS % 0.6 % (0.0-2.0); EOSINOPHILS % 2.4 % (0.0-5.0); HEMATOCRIT. 22.3 % (42.0-52.0); HEMOGLOBIN. 7.7 g/dL (14.0-18.0); LYMPHOCYTES % 10.4 % (20.0-50.0); MEAN CORPUSCULAR HEMOGLOBIN 30.7 pg (28.0-32.0); MEAN CORPUSCULAR VOLUME 89.6 fL (80.0-94.0); MEAN PLATELET VOLUME 8.4 fl (7.4-10.4); MONOCYTES % 9.1 % (2.0-8.0); NEUTROPHILS % 77.5 % (40.0-76.0); PLATELET 255 x1000/uL (130-400); RED BLOOD CELL COUNT 2.49 mill/uL (4.7-6.1); RED CELL DISTRIBUTION WIDTH 16.5 % (11.6-14.6)
[2019-07-02] MEDS: LOSARTAN POTASSIUM 50 MG TABLET PO SCH (10:19)
[2019-07-02] MEDS: FENTANYL CITRATE/PF 500 MCG in SODIUM CHLORIDE 0.9% 40 ML IV PRN ×3 (10:27→23:48)
[2019-07-02] MEDS ORDERED: ETOMIDATE 2MG/ML 10ML VIAL IV ONE (13:00)
[2019-07-02] MEDS ORDERED: VECURONIUM BROMIDE 10 MG/VIAL IV ONE (13:00)
[2019-07-02] MEDS: HYDRALAZINE 20MG/ML VIAL IV PRN (13:17)
[2019-07-02] MEDS ORDERED: NICARDIPINE 40MG/200ML PREMIX 200 ML IV STA (13:42)
[2019-07-02] MEDS ORDERED: NICARDIPINE 50 MG in SODIUM CHLORIDE 0.9% 230 ML IV PRN (14:00)
[2019-07-02] MEDS: CARVEDILOL 12.5MG TABLET PO SCH (21:08)
[2019-07-02] MEDS: DEXT 5%/0.9% NACL 1,000 ML IV SCH (21:09)
[2019-07-03] VITALS (76 sets, daily range): BP systolic 75–149; BP diastolic 47–100
[2019-07-03] MEDS: PIPERACILLIN/TAZOBACTAM 2.25 G in DEXTROSE 5% WATER 50 ML IV SCH ×3 (01:52→18:34)
[2019-07-03] MEDS: MIDAZOLAM HCL 50 MG in DEXTROSE 5% WATER 50ML IV PRN ×2 (03:21→04:16)
[2019-07-03] MEDS: INSULIN LISPRO 100 UNITS/ML SUBCUT SCH ×4 (05:52→21:00)
[2019-07-03 05:56] LABS: EOSINOPHILS % 2.6 % (0.0-5.0); HEMATOCRIT. 22.2 % (42.0-52.0); HEMOGLOBIN. 7.4 g/dL (14.0-18.0); MEAN CORPUSCULAR HEMOGLOBIN 30.1 pg (28.0-32.0); MEAN CORPUSCULAR VOLUME 90.7 fL (80.0-94.0); MEAN PLATELET VOLUME 8.8 fl (7.4-10.4); MONOCYTES % 8.8 % (2.0-8.0); NEUTROPHILS % 78.6 % (40.0-76.0); PLATELET 253 x1000/uL (130-400); RED BLOOD CELL COUNT 2.44 mill/uL (4.7-6.1)
[2019-07-03] MEDS: BLOOD SUGAR DIAGNOSTIC STRIP TEST SCH ×4 (06:32→20:48)
[2019-07-03] MEDS: IPRATROPIUM/ALBUTEROL 0.5-3(2.5)MG/3ML NEB HHN SCH ×3 (09:05→16:46)
[2019-07-03] MEDS: CARVEDILOL 12.5MG TABLET PO SCH ×2 (09:42→21:06)
[2019-07-03] MEDS: PANTOPRAZOLE SODIUM 40 MG/VIAL IV SCH (09:43)
[2019-07-03] MEDS: ENOXAPARIN 40MG/0.4ML SYR SUBCUT SCH (09:43)
[2019-07-03] MEDS: LOSARTAN POTASSIUM 50 MG TABLET PO SCH (09:45)
[2019-07-03] MEDS: FENTANYL CITRATE/PF 500 MCG in SODIUM CHLORIDE 0.9% 40 ML IV PRN (10:21)
[2019-07-03 13:56] LABS: BG BASE EXCESS -4.6 mmol/L (-2.0-2.0); BG CARBOXYHEMOGLOBIN 0.3 % (0.5-1.5); BG CPAP (cmH2O) 0 cm(H2O); BG DEOXYHEMOGLOBIN 3.4 % (0.0-5.0); BG HCO3 ACT 20.4 mmol/L (22.0-26.0); BG METHEMOGLOBIN 0.1 % (0.0-1.5); BG OXYGEN SATURATION 96.6 % (92.0-98.5); BG OXYHEMOGLOBIN 96.2 % (94.0-97.0); BG PCO2 37.4 mmHg (35.0-45.0); BG PH 7.355 (7.350-7.450); BG PO2 109.9 mmHg (75.0-100.0); BG SAMPLE SITE RIGHT RADIAL; BG TOTAL HEMOGLOBIN 8.9 g/dL (12.0-18.0); BG VENT MODE VENT - CPAP
[2019-07-03] MEDS: DEXT 5%/0.9% NACL 1,000 ML IV SCH (23:57)
[2019-07-04] VITALS (26 sets, daily range): BP systolic 114–208; BP diastolic 35–125
[2019-07-04] MEDS: PIPERACILLIN/TAZOBACTAM 2.25 G in DEXTROSE 5% WATER 50 ML IV SCH ×3 (03:44→18:34)
[2019-07-04 06:17] LABS: EOSINOPHILS % 3.8 % (0.0-5.0); HEMATOCRIT. 25.2 % (42.0-52.0); HEMOGLOBIN. 8.3 g/dL (14.0-18.0); LYMPHOCYTES % 12.1 % (20.0-50.0); MEAN CORPUSCULAR HEMOGLOBIN 30.2 pg (28.0-32.0); MEAN CORPUSCULAR VOLUME 91.8 fL (80.0-94.0); MEAN PLATELET VOLUME 8.8 fl (7.4-10.4); MONOCYTES % 9.7 % (2.0-8.0); NEUTROPHILS % 73.4 % (40.0-76.0); PLATELET 287 x1000/uL (130-400); RED BLOOD CELL COUNT 2.74 mill/uL (4.7-6.1); RED CELL DISTRIBUTION WIDTH 16.2 % (11.6-14.6)
[2019-07-04] MEDS: BLOOD SUGAR DIAGNOSTIC STRIP TEST SCH ×4 (07:50→20:41)
[2019-07-04] MEDS: INSULIN LISPRO 100 UNITS/ML SUBCUT SCH ×4 (08:20→20:43)
[2019-07-04] MEDS: IPRATROPIUM/ALBUTEROL 0.5-3(2.5)MG/3ML NEB HHN SCH ×2 (09:22→13:00)
[2019-07-04] MEDS: LOSARTAN POTASSIUM 50 MG TABLET PO SCH (09:28)
[2019-07-04] MEDS: CARVEDILOL 12.5MG TABLET PO SCH ×2 (09:28→20:41)
[2019-07-04] MEDS: PANTOPRAZOLE SODIUM 40 MG/VIAL IV SCH (09:28)
[2019-07-04] MEDS ORDERED: CLONIDINE 0.1MG TABLET PO PRN (10:30)
[2019-07-04] MEDS ORDERED: FAMOTIDINE 20MG/2ML VIAL IV SCH (11:00)
[2019-07-04] MEDS: METHYLPREDNISOLONE SOD SUCC 40 MG/ML VIAL IV SCH ×2 (11:12→18:34)
[2019-07-04] MEDS: DEXT 5%/0.9% NACL 1,000 ML IV SCH (16:52)
[2019-07-04] MEDS: HYDRALAZINE 20MG/ML VIAL IV PRN (19:39)
== END 2019-07-04 22:14 | disposition expired | DRG 870 ==
LOC: ER 10:04 → EDBEDREQ 11:17 → MICUSO 11:30 → EDBEDREQTM 11:36 → EDBEDREQSVC 11:36 → EDBEDREQ 11:36 → ENRESERV 21:44 → MICUNO 06-30 13:29 → CVICU 07-03 19:03 → 3WST 07-04 15:58 → UNDODISIN 07-04 23:56
PROVIDERS: ADMIT Internal Medicine Nephrology; ATTEND Internal Medicine Nephrology
PROC: 5A1955Z Respiratory Ventilation, Greater than 96 Consecutive Hours (ICD-10-PCS; principal; 2019-06-28)
PROC: 0BH17EZ Insertion of Endotracheal Airway into Trachea, Via Natural or Artificial Opening (ICD-10-PCS; 2019-06-28)
PROC: 06HY33Z Insertion of Infusion Device into Lower Vein, Percutaneous Approach (ICD-10-PCS; 2019-06-28)
PROC: 5A1D70Z Performance of Urinary Filtration, Intermittent, Less than 6 Hours Per Day (ICD-10-PCS; 2019-06-29)
PROC: 0BH17EZ Insertion of Endotracheal Airway into Trachea, Via Natural or Artificial Opening (ICD-10-PCS; 2019-07-02)
PROC: 5A1D70Z Performance of Urinary Filtration, Intermittent, Less than 6 Hours Per Day (ICD-10-PCS; 2019-07-02)
PROC: 5A12012 Performance of Cardiac Output, Single, Manual (ICD-10-PCS; 2019-07-04)
DX: A41.9 Sepsis, unspecified organism (principal); J96.01 Acute respiratory failure with hypoxia; N18.6 End stage renal disease; J69.0 Pneumonitis due to inhalation of food and vomit; I50.23 Acute on chronic systolic (congestive) heart failure; E87.2 Acidosis; E87.1 Hypo-osmolality and hyponatremia; I13.2 Hypertensive heart and chronic kidney disease with heart failure and with stage 5 chronic kidney disease, or end stage renal disease; I42.9 Cardiomyopathy, unspecified; I46.9 Cardiac arrest, cause unspecified; E11.22 Type 2 diabetes mellitus with diabetic chronic kidney disease; E66.01 Morbid (severe) obesity due to excess calories; J44.9 Chronic obstructive pulmonary disease, unspecified; E87.5 Hyperkalemia; D63.8 Anemia in other chronic diseases classified elsewhere; D72.810 Lymphocytopenia; E03.9 Hypothyroidism, unspecified; E78.5 Hyperlipidemia, unspecified; E87.8 Other disorders of electrolyte and fluid balance, not elsewhere classified; I25.10 Atherosclerotic heart disease of native coronary artery without angina pectoris; N40.0 Benign prostatic hyperplasia without lower urinary tract symptoms; T78.3XXA Angioneurotic edema, initial encounter; Z20.818 Contact with and (suspected) exposure to other bacterial communicable diseases; I25.2 Old myocardial infarction; Z95.1 Presence of aortocoronary bypass graft; Z95.5 Presence of coronary angioplasty implant and graft; Z99.2 Dependence on renal dialysis; Z68.35 Body mass index [BMI] 35.0-35.9, adult; Z79.899 Other long term (current) drug therapy; Z78.1 Physical restraint status
CPT/HCPCS: 31500; 36415; 36556; 36600; 71045; 80048; 80053; 81003; 82140; 82375; 82728; 82805; 82962; 83605; 83615; 83735; 83880; 84132; 84145; 84484; 85025; 86140; 87635; 87804; 92950; 93005; 93306; 94002; 94003; 94640; 96365; 96367; 96375; 99291; C9113; J0360; J0456; J0696; J1265; J1650; J1815; J1940; J1956; J2060; J2250; J2543; J2704; J2920; J3010; J3370; J3490; J7042; J7050; J7060